=== PATIENT | female | born 2000 | race Caucasian/White ===

== ENCOUNTER 2022-03-22 18:17 | Emergency (ER) | payer SELFPAY ==
[~2022-03-22] VITALS: Ht 149.9 cm; Wt 50.0 kg
[2022-03-22 18:17] VITALS: TEMP 98.3
[2022-03-22 18:58] LABS: BASO % 0.2 % (0.0-2.0); GRAN # 15.6 K/mm3 (1.4-6.5); GRAN % 89.8 % (42.2-75.2); HEMOGLOBIN 12.2 g/dl (12.5-16.0); LYMPH # 0.9 K/mm3 (1.2-3.4); MEAN CELL VOLUME 87 fl (80.0-100.0); MEAN CORPUSCULAR HEMOGLOBIN 30 pg (27-31); MEAN CORPUSCULAR HGB CONC 35 g/dl (33.0-37.0); MEAN PLATELET VOLUME 8.9 fl (7.4-10.4); MONO # 0.8 K/mm3 (0.1-0.6); MONO % 4.7 % (1.7-9.3); PLATELET COUNT 255 K/mm3 (130-400); RED BLOOD COUNT 4.05 M/mm3 (4.10-5.30); REDCELL DISTRIBUTION WIDTH-CV 12.7 % (11.5-14.5)
[2022-03-22 19:10] LABS: HEMATOCRIT 35.3 % (37.0-47.0)
[2022-03-22 19:11] LABS: ALBUMIN 3.6 gm/dL (3.5-5.0); BILIRUBIN,TOTAL 0.5 mg/dL (0.2-1.2); CALCIUM 8.7 mg/dL (8.4-10.2); CREATININE, serum 0.7 mg/dL (0.57-1.11); POTASSIUM 3.8 mmol/L (3.5-4.5); TOTAL PROTEIN 6.5 gm/dL (6.2-8.1)
[2022-03-22 21:33] VITALS: BP 118/94; PULSE 78
== END 2022-03-22 21:33 | disposition home or self-care (01) ==
LOC: COL.ER 18:17
PROVIDERS: Nurse Practitioner
DX: O03.9 Complete or unspecified spontaneous abortion without complication (principal)
CPT/HCPCS: J3010; J7030

== ENCOUNTER 2022-05-28 01:40 | Emergency (ER) | payer SELFPAY ==
[~2022-05-28] VITALS: Ht 149.9 cm; Wt 50.0 kg
[2022-05-28 01:58] LABS: COLLECTION METHOD CLEAN CATCH
[2022-05-28 02:01] LABS: BASO % 0.4 % (0.0-2.0); EOS # 0.1 K/mm3 (0.0-0.7); EOS % 1.2 % (0.0-4.0); GRAN % 59.9 % (42.2-75.2); HEMATOCRIT 40.9 % (37.0-47.0); HEMOGLOBIN 13.7 g/dl (12.5-16.0); LYMPH # 3.1 K/mm3 (1.2-3.4); LYMPH % 31.2 % (20.0-51.0); MEAN CELL VOLUME 86 fl (80.0-100.0); MEAN CORPUSCULAR HEMOGLOBIN 29 pg (27-31); MEAN CORPUSCULAR HGB CONC 34 g/dl (33.0-37.0); MONO # 0.7 K/mm3 (0.1-0.6); MONO % 7.1 % (1.7-9.3); PLATELET COUNT 301 K/mm3 (130-400); RED BLOOD COUNT 4.76 M/mm3 (4.10-5.30); REDCELL DISTRIBUTION WIDTH-CV 11.4 % (11.5-14.5)
[2022-05-28 02:08] LABS: MUCOUS Present (NOT PRESENT); SQUAMOUS EPITHELIAL 0-2 /hpf (0-10); URINE BACTERIA Moderate /hpf (NONE SEEN); URINE RBC >50 /hpf (0-2)
[2022-05-28 02:12] LABS: PH 7 (5-8); URINE APPEARANCE Cloudy (CLEAR/HAZY); URINE BLOOD 2+ (NEGATIVE); URINE COLOR Yellow (YELLOW); URINE GLUCOSE Negative (NEGATIVE); URINE KETONE Negative (NEGATIVE); URINE NITRATE Positive (NEGATIVE); URINE PROTEIN(semi-quant) Negative (NEGATIVE); URINE UROBILINOGEN Negative (NEGATIVE)
[2022-05-28 02:24] LABS: BILIRUBIN,TOTAL 0.4 mg/dL (0.2-1.2); CALCIUM 9.4 mg/dL (8.4-10.2); CREATININE, serum 0.85 mg/dL (0.57-1.11); POTASSIUM 3.4 mmol/L (3.5-4.5); TOTAL PROTEIN 7.7 gm/dL (6.2-8.1)
[2022-05-28] MEDS ORDERED: ZOFRAN ODT4 MG PO (03:35)
[2022-05-28] MEDS ORDERED: CEPHALEXIN500 M1 PO (03:35)
[2022-05-28 03:38] VITALS: BP 112/78; PULSE 92; TEMP 97.9
[2022-05-30] MEDS ORDERED: MACROBID 1100 MG/CAP PO (14:40)
== END 2022-05-28 03:45 | disposition home or self-care (01) ==
LOC: COL.ER 01:40
PROVIDERS: Emergency Medicine
DX: N39.0 Urinary tract infection, site not specified (principal); Z32.02 Encounter for pregnancy test, result negative
CPT/HCPCS: J0696; J2405; J7120; Q9967

== ENCOUNTER 2023-11-08 11:37 | Emergency (ER) | payer SELFPAY ==
[~2023-11-08] VITALS: Ht 149.9 cm; Wt 50.9 kg
[~2023-11-08 11:37] MED LIST: CEPHALEXIN500 M1 PO; MACROBID 1100 MG/CAP PO; ZOFRAN ODT4 MG PO
[2023-11-08 11:58] VITALS: TEMP 98.8
[2023-11-08] MEDS ORDERED: AMOXICILLIN 8751 TAB PO (13:46)
[2023-11-08 13:55] VITALS: BP 127/83; PULSE 100
== END 2023-11-08 13:55 | disposition home or self-care (01) ==
LOC: COL.ER 11:37
DX: S01.25XA Open bite of nose, initial encounter (principal); W54.0XXA Bitten by dog, initial encounter